=== PATIENT | male | born 1990 | race Caucasian/White ===

== ENCOUNTER 2020-01-21 12:35 | Emergency (ER) | payer OTHER ==
[~2020-01-21] VITALS: Ht 175.3 cm; Wt 77.7 kg
[~2020-01-21 12:35] MED LIST: MULT1CAP19 PO; OMEG1CAP23 PO
[2020-01-21 15:36] VITALS: BP 123/69
== END 2020-01-21 16:02 | disposition home or self-care (01) ==
LOC: ED 13:26
DX: J15.9 Unspecified bacterial pneumonia (principal); R04.2 Hemoptysis; W18.39XA Other fall on same level, initial encounter; Y93.55 Activity, bike riding; Y92.39 Other specified sports and athletic area as the place of occurrence of the external cause; Y99.8 Other external cause status
CPT/HCPCS: 71250; 99284